=== PATIENT | male | born 1950 | race Caucasian/White ===

== ENCOUNTER 2020-12-08 14:46 | Observation (INO) | payer MEDICARE, OTHER ==
--- NOTE | 2020-12-08 15:03 | ERPHSYRPT ---
- History of Present Illness Time Seen by Provider: 12/08/20 15:03 Source: patient, family Exam Limitations: no limitations Patient Subjective Stated Complaint: Pt states "I was at my Dr. office and he said I needed to come here." "I have been a little short of breath." Triage Nursing Assessment: Pt presented alert and oriented X 3, skin pwd Pt ambulates with a slow shuffling gait, able to speak in clear full sentences pt in no apparent respiratory distress. 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 Yin) for an evaluation. Patient has been becoming more short of breath. With exertion, today, his oxygen saturation on his usual oxygen supplementation was in the 60s percentage. When he is lying flat and still he was 97%. Patient is a [facility] patient but prefers to stay at [facility]. Patient refuses to go to the hospitals in [facility]. Patient has a history of CLL and frequently has abnormally high very high white blood cell counts. Patient denies chest pain. He denies fevers, he denies abdominal pain. He denies nausea vomiting diarrhea. Timing/Duration: today Activities at Onset: activity Severity of Dyspnea-Max: moderate Severity of Dyspnea-Current: moderate Possible Cause: frequent episodes Modifying Factors: Improves With: activity, exertion Associated Symptoms: ankle swelling, No chest pain/discomfort Allergies/Adverse Reactions: No Known Drug Allergies Allergy (Verified 12/08/20 14:55) Home Medications: Albuterol Sulfate [Albuterol Sulfate Hfa] 8.5 gm IH DAILY 12/08/20 [History] Budesonide/Formoterol Fumarate [Symbicort 80-4.5 Mcg Inhaler] 10.2 gm IH DAILY 12/08/20 [History] Furosemide 20 mg [Lasix 20 mg] 20 mg PO DAILY 12/08/20 [History] Prednisone 20 mg [Deltasone 20 mg] 20 mg PO DAILY 12/08/20 [History] lisinopriL [Lisinopril] 5 mg PO DAILY 12/08/20 [History] Hx Tetanus, Diphtheria Vaccination/Date Given: No Hx Influenza Vaccination/Date Given: No Hx Pneumococcal Vaccination/Date Given: No Immunizations Up to Date: Yes Travel Risk - International Travel Have you traveled outside of the country in past 3 weeks: No - Coronavirus Screening Are you exhibiting any of the following symptoms?: No Close contact with a COVID-19 positive Pt in past 14-21 Days: No - Vaccine Status Have you recieved a Covid-19 vaccination: Yes Project Director: Moderna - Vaccination Dates Date of 2cond Vaccination (if applicable): 2020 - Review of Systems Constitutional: No Symptoms Eyes: No Symptoms Ears, Nose, & Throat: No Symptoms Respiratory: Dyspnea on Exertion (ALEGRIA) Cardiac: No Symptoms Abdominal/Gastrointestinal: No Symptoms Genitourinary Symptoms: No Symptoms Musculoskeletal: No Symptoms Skin: No Symptoms Neurological: No Symptoms Psychological: No Symptoms Endocrine: No Symptoms Hematologic/Lymphatic: No Symptoms Immunological/Allergic: No Symptoms All Other Systems: Reviewed and Negative - Past Medical History Pertinent Past Medical History: Yes Neurological History: No Pertinent History ENT History: No Pertinent History Cardiac History: High Cholesterol, Hypertension, Myocardial Infarction ([place]) Respiratory History: Asthma, COPD, Emphysema Endocrine Medical History: Hypoglycemia Musculoskeletal History: No Pertinent History GI Medical History: No Pertinent History History: Renal Disease Psycho-Social History: No Pertinent History Male Reproductive Disorders: No Pertinent History - Past Surgical History Past Surgical History: Yes Other Surgical History: cardiac cath and stent placement. hernia - Social History Smoking Status: Former smoker Exposure to second hand smoke: Yes Drug Use: none Patient Lives Alone: No - Nursing Vital Signs Nursing Vital Signs: Initial Vital Signs Temperature 97.8 F 12/08/20 14:49 Pulse Rate 94 H 12/08/20 14:49 Respiratory Rate 22 12/08/20 14:49 Blood Pressure 143/87 12/08/20 14:49 O2 Sat by Pulse Oximetry 97 12/08/20 14:49 Pain Scale Pain Intensity 0 - Physical Exam General Appearance: mild distress, alert, anxiety Eye Exam: PERRL/EOMI, eyes nml inspection Ears, Nose, Throat Exam: hearing grossly normal, normal ENT inspection, normal pharynx Neck Exam: normal inspection, non-tender, supple, full range of motion Respiratory Exam: normal breath sounds, lungs clear, respiratory distress (Mild), airway intact, No chest tenderness Cardiovascular/Chest Exam: normal heart sounds, regular rate/rhythm, normal peripheral pulses Abdominal/Gastrointestinal Exam: soft, normal bowel sounds, No tenderness Rectal Exam: not done Extremity Exam: non-tender, normal range of motion, normal inspection Neurologic Exam: alert, oriented x 3, cooperative, data warehousing architect II-XII nml as tested, normal mood/affect, nml cerebellar function, nml station & gait, sensation nml Skin Exam: normal color, warm, dry Lymphatic Exam: No adenopathy SpO2 Interpretation: normal SpO2: 97 O2 Delivery: Nasal Cannula - Course Nursing assessment & vital signs reviewed: Yes EKG Interpreted by Me: RATE (90), Sinus Rhythm, NORMAL AXIS, NORMAL INTERVALS, NORMAL QRS, NORMAL ST-T, Other (No acute ischemic changes. There are no comparison EKGs available for comparison.) Ordered Tests: Active Orders 24 hr Category Date Time Status Wood Block Artist STAT Care 12/08/20 15:28 Active EKG-ER Only STAT Care 12/08/20 15:27 Active IV Insertion STAT Care 12/08/20 15:27 Active Pulse Oximetry (ED) STAT Care 12/08/20 15:27 Active CHEST 1 VIEW (PORTABLE) Stat Exams 12/08/20 15:28 Completed CBC W DIFF Stat Lab 12/08/20 17:31 Completed CMP Stat Lab 12/08/20 15:20 Completed Lactic Acid Stat Lab 12/08/20 15:27 Completed Manual Differential NC Stat Lab 12/08/20 17:31 Completed NT PRO BNP Stat Lab 12/08/20 15:20 Completed PROTIME WITH INR Stat Lab 12/08/20 15:50 Completed TROPONIN Q3H Lab 12/08/20 15:20 Completed TROPONIN Q3H Lab 12/08/20 18:24 Received TROPONIN Q3H Lab 12/08/20 21:30 Ordered TROPONIN Q3H Lab 12/09/20 00:30 Ordered TROPONIN Q3H Lab 12/09/20 03:30 Ordered Transfer Order Routine Transfer 12/08/20 Ordered Medication Summary Discontinued Medications Generic Name Dose Route Start Last Admin Trade Name Freq PRN Reason Stop Dose Admin Methylprednisolone Sodium 0 mg 12/08/20 15:27 12/08/20 15:33 Succinate 125 mg/ Sterile IV 12/08/20 15:28 125 mg Water 2 ml STAT ONE Administration Methylprednisolone Sodium Succinate Confirm 12/08/20 15:32 Solu-Medrol Administered 12/08/20 15:33 Dose 125 mg .ROUTE .STK-MED ONE Sterile Water Confirm 12/08/20 15:32 Sterile H2o 10 Ml Administered 12/08/20 15:33 Dose 10 ml IJ .K-MED ONE Lab/Rad Data: Laboratory Result Diagrams 12/08/20 17:31 12/08/20 15:20 Laboratory Results 12/08/20 12/08/20 12/08/20 Range/Units 17:31 16:32 15:50 WBC 26.0 H* (4.0-10.5) K/mm3 RBC 4.46 (4.1-5.6) M/mm3 Hgb 14.6 (12.5-18.0) gm/dl Hct 46.7 (42-50) % MCV 104.7 H (78-100) fl MCH 32.7 H (26-32) pg MCHC 31.3 L (32-36) g/dl RDW 13.3 (11.5-14.0) % Plt Count 188 (150-450) K/mm3 MPV 9.1 (7.5-11.0) fl PT 12.3 (9.4-12.5) SECONDS INR 1.04 (0.8-3.0) Sodium (137-145) mmol/L Potassium (3.5-5.1) mmol/L Chloride (98-107) mmol/L Carbon Dioxide (22-30) mmol/L Anion Gap (5-15) MEQ/L BUN (9-20) mg/dL Creatinine (0.66-1.25) mg/dL Estimated GFR ML/MIN Glucose (74-106) mg/dL Lactic Acid (0.4-2.0) Calcium (8.4-10.2) mg/dL Total Bilirubin (0.2-1.3) mg/dL AST (17-59) U/L ALT (0-50) U/L Alkaline Phosphatase (38-126) U/L Troponin I (0.000-0.034) ng/mL NT-Pro-B Natriuret Pep (0-900) pg/mL Serum Total Protein (6.3-8.2) g/dL Albumin (3.5-5.0) g/dL SARS-CoV-2 (PCR) NEGATIVE (NEGATIVE) 12/08/20 12/08/20 12/08/20 Range/Units 15:27 15:20 15:20 WBC (4.0-10.5) K/mm3 RBC (4.1-5.6) M/mm3 Hgb (12.5-18.0) gm/dl Hct (42-50) % MCV (78-100) fl MCH (26-32) pg MCHC (32-36) g/dl RDW (11.5-14.0) % Plt Count (150-450) K/mm3 MPV (7.5-11.0) fl PT (9.4-12.5) SECONDS INR (0.8-3.0) Sodium 140 (137-145) mmol/L Potassium 3.9 (3.5-5.1) mmol/L Chloride 97 L (98-107) mmol/L Carbon Dioxide 37 H (22-30) mmol/L Anion Gap 9.8 (5-15) MEQ/L BUN 22 H (9-20) mg/dL Creatinine 0.87 (0.66-1.25) mg/dL Estimated GFR > 60.0 ML/MIN Glucose 148 H (74-106) mg/dL Lactic Acid 1.2 (0.4-2.0) Calcium 9.0 (8.4-10.2) mg/dL Total Bilirubin 0.80 (0.2-1.3) mg/dL AST 42 (17-59) U/L ALT 42 (0-50) U/L Alkaline Phosphatase 84 (38-126) U/L Troponin I < 0.012 (0.000-0.034) ng/mL NT-Pro-B Natriuret Pep 245 (0-900) pg/mL Serum Total Protein 6.3 (6.3-8.2) g/dL Albumin 3.7 (3.5-5.0) g/dL SARS-CoV-2 (PCR) (NEGATIVE) - Progress Progress: improved, re-examined Air Movement: good Progress Note: 12/08/20 16:56 Chest x-ray shows COPD changes. There are no acute cardiopulmonary processes present. Blood Culture(s) Obtained: No Antibiotics given: No Discussed with Dr.: Groves Counseled pt/family regarding: lab results, diagnosis, rad results - Departure Departure Disposition: Observation Clinical Impression: COPD with acute exacerbation, Hypoxia Condition: Stable Critical Care Time: Yes Critical Care Time(excluding separately billable procedures): Critical 30-74 mins Referrals: CUAUHTEMOC SANTANA [NON-STAFF PHY W/O PRIVILEGES] - Instructions: Chronic Obstructive Pulmonary Disease
[2020-12-08] MEDS ORDERED: solu-MEDROL 125 MG, Sterile H2O 10 ml 2 ML IV ONE ×2 (15:27)
[2020-12-08] MEDS ORDERED: solu-MEDROL ONE ×2 (15:32→23:16)
[2020-12-08] MEDS ORDERED: Sterile H2O 10 ml IJ ONE ×2 (15:32→23:16)
[2020-12-08 16:09] LABS: INR 1.04 (0.8-3.0); PROTIME 12.3 SECONDS (9.4-12.5)
--- NOTE | 2020-12-08 16:20 | XRAY ---
Exam: AP upright portable chest film from 12/08/2020. Indication: 70-year-old male with shortness of breath, no history of prior surgery. Findings: The transverse heart size is normal. Some atherosclerotic vascular calcification is seen within the aortic arch. The tena and mediastinal structures are remarkable for some mild chronic central bronchial wall thickening, perhaps secondary to COPD. The lungs are hyperinflated. I note significant emphysematous changes throughout the upper two thirds of the right lung field and at the left lung apex. No air space infiltrates, pneumothorax, or pleural effusion is seen. There is mild biapical pleural thickening. Old healed rib fracture deformities are seen posteriorly involving the right fourth and fifth ribs. No acute osseous process is seen. Impression: 1. Hyperinflation of the lung hull and significant centrilobular emphysematous changes in both upper lung hull, right greater than left. Central bronchial wall thickening is probably on the basis of COPD. 2. No air space infiltrates or other acute cardiopulmonary disease is seen.
[2020-12-08 16:23] LABS: ALBUMIN 3.7 g/dL (3.5-5.0); ALKALINE PHOSPHATASE 84 U/L (38-126); ANION GAP 9.8 MEQ/L (5-15); BLOOD UREA NITROGEN 22 mg/dL (9-20); CHLORIDE 97 mmol/L (98-107); Carbon Dioxide 37 mmol/L (22-30); Creatinine 1 0.87 mg/dL (0.66-1.25); EST GLOMERULAR FILTRATION RATE > 60.0 ML/MIN; Glucose 148 mg/dL (74-106); NT PRO BNP 245 pg/mL (0-900); Potassium 3.9 mmol/L (3.5-5.1); SGOT/AST 42 U/L (17-59); SGPT/ALT 42 U/L (0-50); SODIUM 140 mmol/L (137-145); Total Protein 6.3 g/dL (6.3-8.2)
[2020-12-08 17:58] LABS: Hematocrit 46.7 % (42-50); Hemoglobin 14.6 gm/dl (12.5-18.0); Mean Cell Volume 104.7 fl (78-100); Mean Corpuscular Hemoglobin 32.7 pg (26-32); Mean Corpuscular Hgb Concent. 31.3 g/dl (32-36); Mean Platelet Volume 9.1 fl (7.5-11.0); Platelet Count 188 K/mm3 (150-450); Red Blood Count 4.46 M/mm3 (4.1-5.6); Red Cell Distribution Width 13.3 % (11.5-14.0)
[2020-12-08 20:00] LABS: Lymphocytes 59 % (24-44); Monocyte 3 % (0.0-12.0); Neutrophils 38 % (36.-66.); Platelet Estimate NORMAL (NORMAL); Total Cells Counted 100
[2020-12-08] MEDS ORDERED: TYLENOL 325 MG PO PRN (20:11)
[2020-12-08] MEDS: PROVENTIL 2.5 MG/3 ML NEB IH SCH (22:10)
[2020-12-08] MEDS ORDERED: PROVENTIL 2.5 MG/3 ML NEB IH ONE (22:14)
[2020-12-08] MEDS: solu-MEDROL 80 MG, Sterile H2O 10 ml 2 ML IV SCH ×2 (23:45)
[2020-12-08] MEDS: COREG 12.5 MG PO SCH (23:46)
[2020-12-08] MEDS: ZOCOR 20MG PO SCH (23:46)
[2020-12-08] MEDS: Protonix 40MG Tablet PO SCH (23:46)
[2020-12-09] MEDS ORDERED: ZOCOR 20MG PO SCH
[2020-12-09 05:02] LABS: Mean Cell Volume 102.8 fl (78-100); Mean Corpuscular Hemoglobin 32.7 pg (26-32); Mean Corpuscular Hgb Concent. 31.8 g/dl (32-36); Mean Platelet Volume 8.9 fl (7.5-11.0); Platelet Count 179 K/mm3 (150-450); Red Blood Count 4.28 M/mm3 (4.1-5.6); Red Cell Distribution Width 12.9 % (11.5-14.0)
[2020-12-09 05:06] LABS: White Blood Count 26.4 K/mm3 (4.0-10.5)
[2020-12-09 05:25] LABS: ALBUMIN 3.5 g/dL (3.5-5.0); ALKALINE PHOSPHATASE 80 U/L (38-126); ANION GAP 9.2 MEQ/L (5-15); BLOOD UREA NITROGEN 23 mg/dL (9-20); CHLORIDE 97 mmol/L (98-107); Calcium 9.1 mg/dL (8.4-10.2); Carbon Dioxide 36 mmol/L (22-30); Creatinine 1 0.74 mg/dL (0.66-1.25); EST GLOMERULAR FILTRATION RATE > 60.0 ML/MIN; Glucose 148 mg/dL (74-106); NT PRO BNP 343 pg/mL (0-900); Potassium 4.6 mmol/L (3.5-5.1); SGOT/AST 26 U/L (17-59); SGPT/ALT 36 U/L (0-50); SODIUM 137 mmol/L (137-145); Total Protein 5.8 g/dL (6.3-8.2)
[2020-12-09] MEDS: PROVENTIL 2.5 MG/3 ML NEB IH SCH ×3 (06:42→19:55)
[2020-12-09] MEDS: Advair Hfa 115/21 Common canister IH SCH ×2 (06:42→19:55)
--- NOTE | 2020-12-09 09:23 | PCM.HP ---
History of Present Illness - Chief Complaint Chief Complaint: COPD with exacerbation History of Present Illness: is a 70 [facility] old male [facility] patient that [facility] with Dr Yin, he has increasing cough, nonproductive and shortness of breath, oxygen drops with exertion significantly. he has no fever, symptoms are intermittent with severe shortness of breath and hypoxia with exertion. - Review of Systems Respiratory: Cough, Short Of Breath Cardiac: No Chest Pain, No Edema, No Syncope Abdominal/Gastrointestinal: No Abdominal Pain, No Nausea, No Vomiting, No Diarrhea Genitourinary Symptoms: No Dysuria Skin: No Rash All Other Systems: Reviewed and Negative Medications & Allergies Home Medications: Home Medication List Albuterol Sulfate [Albuterol Sulfate Hfa] 8.5 gm IH Q6H 12/08/20 [History Confirmed 12/08/20] Aspirin EC 81 mg [Ecotrin 81 mg] 81 mg PO DAILY 12/08/20 [History Confirmed 12/08/20] Atorvastatin Calcium 80 mg PO HS 12/08/20 [History Confirmed 12/08/20] Budesonide/Formoterol Fumarate [Symbicort 80-4.5 Mcg Inhaler] 10.2 gm IH DAILY 12/08/20 [History Confirmed 12/08/20] Carvedilol 12.5 mg [Coreg 12.5 mg] 12.5 mg PO BID 12/08/20 [History Confirmed 12/08/20] Cholecalciferol (Vitamin D3) [Vitamin D3] 25 mcg PO DAILY 12/08/20 [History Confirmed 12/08/20] Furosemide 20 mg [Lasix 20 mg] 20 mg PO DAILY 12/08/20 [History Confirmed 12/08/20] Magnesium Oxide [Magnesium] 400 mg PO DAILY 12/08/20 [History Confirmed 12/08/20] Omeprazole 20 mg PO BIDWM 12/08/20 [History Confirmed 12/08/20] Prednisone 20 mg [Deltasone 20 mg] 20 mg PO DAILY 12/08/20 [History Confirmed 12/08/20] Promethazine HCl 25 mg [Phenergan 25 mg] 12.5 mg PO Q6H PRN 12/08/20 [History Confirmed 12/08/20] lisinopriL [Lisinopril] 5 mg PO DAILY 12/08/20 [History Confirmed 12/08/20] Allergies/Adverse Reactions: Allergies Allergy/AdvReac Type Severity Reaction Status Date / Time No Known Drug Allergies Allergy Verified 12/08/20 14:55 - Past Medical History Past Medical History: Yes Neurological History: No Pertinent History ENT History: No Pertinent History Cardiac History: High Cholesterol, Hypertension, Myocardial Infarction ([place]) Respiratory History: COPD, Emphysema Endocrine Medical History: Hypoglycemia Musculoskelatal History: No Pertinent History GI Medical History: No Pertinent History History: No Pertinent History Pyscho-Social History: No Pertinent History Male Reproductive Disorders: No Pertinent History - Past Surgical History Past Surgical History: Yes Neuro Surgical History: No Pertinent History Cardiac History: Cardiac Stent Respiratory Surgery: No Pertinent History GI Surgical History: Hernia Repair Genitourinary Surgical Hx: No Pertinent History Musculskeletal Surgical Hx: No Pertinent History Male Surgical History: No Pertinent History Other Surgical History: cardiac cath and stent placement. hernia - Social History Smoking Status: Former smoker Exposure to second hand smoke: Yes Alcohol: None Drug Use: none - Physical Exam Vital Signs: Vital Signs - 24 hr Temp Pulse Resp BP Pulse Ox 12/09/20 07:03 98.2 F 88 22 111/56 97 12/09/20 06:45 88 20 95 12/09/20 04:15 98.1 F 76 18 121/67 99 12/08/20 23:34 97.5 F 102 H 19 139/88 95 12/08/20 22:10 105 H 20 95 12/08/20 20:25 97.4 F 101 H 26 H 138/76 96 12/08/20 18:47 97 12/08/20 18:12 79 18 117/78 98 12/08/20 17:06 79 15 114/70 98 12/08/20 16:02 80 12/08/20 15:55 97.8 F 87 20 126/88 98 12/08/20 15:30 95 12/08/20 14:49 97.8 F 94 H 22 143/87 97 General Appearance: no apparent distress Neurologic Exam: alert, oriented x 3 Respiratory Exam: prolonged expirations, rhonchi, wheezing Cardiovascular Exam: regular rate/rhythm, normal heart sounds, normal peripheral pulses Gastrointestinal/Abdomen Exam: soft, normal bowel sounds, No tenderness, No mass Extremity Exam: normal inspection, normal range of motion, pelvis stable Results - Labs Lab/Micro Results: Lab Results-Last 24 Hours 12/08/20 12/08/20 12/08/20 Range/Units 15:20 15:20 15:27 WBC (4.0-10.5) K/mm3 RBC (4.1-5.6) M/mm3 Hgb (12.5-18.0) gm/dl Hct (42-50) % MCV (78-100) fl MCH (26-32) pg MCHC (32-36) g/dl RDW (11.5-14.0) % Plt Count (150-450) K/mm3 MPV (7.5-11.0) fl Segmented Neutrophils (36.-66.) % Lymphocytes (Manual) (24-44) % Monocytes (Manual) (0.0-12.0) % Platelet Estimate (NORMAL) RBC Morphology Smear Path Review PT (9.4-12.5) SECONDS INR (0.8-3.0) Sodium 140 (137-145) mmol/L Potassium 3.9 (3.5-5.1) mmol/L Chloride 97 L (98-107) mmol/L Carbon Dioxide 37 H (22-30) mmol/L Anion Gap 9.8 (5-15) MEQ/L BUN 22 H (9-20) mg/dL Creatinine 0.87 (0.66-1.25) mg/dL Estimated GFR > 60.0 ML/MIN Glucose 148 H (74-106) mg/dL Lactic Acid 1.2 (0.4-2.0) Calcium 9.0 (8.4-10.2) mg/dL Total Bilirubin 0.80 (0.2-1.3) mg/dL AST 42 (17-59) U/L ALT 42 (0-50) U/L Alkaline Phosphatase 84 (38-126) U/L Troponin I < 0.012 (0.000-0.034) ng/mL NT-Pro-B Natriuret Pep 245 (0-900) pg/mL Serum Total Protein 6.3 (6.3-8.2) g/dL Albumin 3.7 (3.5-5.0) g/dL SARS-CoV-2 (PCR) (NEGATIVE) 12/08/20 12/08/20 12/08/20 Range/Units 15:50 16:32 17:31 WBC 26.0 H* (4.0-10.5) K/mm3 RBC 4.46 (4.1-5.6) M/mm3 Hgb 14.6 (12.5-18.0) gm/dl Hct 46.7 (42-50) % MCV 104.7 H (78-100) fl MCH 32.7 H (26-32) pg MCHC 31.3 L (32-36) g/dl RDW 13.3 (11.5-14.0) % Plt Count 188 (150-450) K/mm3 MPV 9.1 (7.5-11.0) fl Segmented Neutrophils 38 (36.-66.) % Lymphocytes (Manual) 59 H (24-44) % Monocytes (Manual) 3 (0.0-12.0) % Platelet Estimate NORMAL (NORMAL) RBC Morphology NORMAL Smear Path Review Pending PT 12.3 (9.4-12.5) SECONDS INR 1.04 (0.8-3.0) Sodium (137-145) mmol/L Potassium (3.5-5.1) mmol/L Chloride (98-107) mmol/L Carbon Dioxide (22-30) mmol/L Anion Gap (5-15) MEQ/L BUN (9-20) mg/dL Creatinine (0.66-1.25) mg/dL Estimated GFR ML/MIN Glucose (74-106) mg/dL Lactic Acid (0.4-2.0) Calcium (8.4-10.2) mg/dL Total Bilirubin (0.2-1.3) mg/dL AST (17-59) U/L ALT (0-50) U/L Alkaline Phosphatase (38-126) U/L Troponin I (0.000-0.034) ng/mL NT-Pro-B Natriuret Pep (0-900) pg/mL Serum Total Protein (6.3-8.2) g/dL Albumin (3.5-5.0) g/dL SARS-CoV-2 (PCR) NEGATIVE (NEGATIVE) 12/08/20 12/08/20 12/09/20 Range/Units 18:24 21:57 00:20 WBC (4.0-10.5) K/mm3 RBC (4.1-5.6) M/mm3 Hgb (12.5-18.0) gm/dl Hct (42-50) % MCV (78-100) fl MCH (26-32) pg MCHC (32-36) g/dl RDW (11.5-14.0) % Plt Count (150-450) K/mm3 MPV (7.5-11.0) fl Segmented Neutrophils (36.-66.) % Lymphocytes (Manual) (24-44) % Monocytes (Manual) (0.0-12.0) % Platelet Estimate (NORMAL) RBC Morphology Smear Path Review PT (9.4-12.5) SECONDS INR (0.8-3.0) Sodium (137-145) mmol/L Potassium (3.5-5.1) mmol/L Chloride (98-107) mmol/L Carbon Dioxide (22-30) mmol/L Anion Gap (5-15) MEQ/L BUN (9-20) mg/dL Creatinine (0.66-1.25) mg/dL Estimated GFR ML/MIN Glucose (74-106) mg/dL Lactic Acid (0.4-2.0) Calcium (8.4-10.2) mg/dL Total Bilirubin (0.2-1.3) mg/dL AST (17-59) U/L ALT (0-50) U/L Alkaline Phosphatase (38-126) U/L Troponin I < 0.012 < 0.012 < 0.012 (0.000-0.034) ng/mL NT-Pro-B Natriuret Pep (0-900) pg/mL Serum Total Protein (6.3-8.2) g/dL Albumin (3.5-5.0) g/dL SARS-CoV-2 (PCR) (NEGATIVE) 12/09/20 12/09/20 12/09/20 Range/Units 04:28 04:28 04:28 WBC 26.4 H* (4.0-10.5) K/mm3 RBC 4.28 (4.1-5.6) M/mm3 Hgb 14.0 (12.5-18.0) gm/dl Hct 44.0 (42-50) % MCV 102.8 H (78-100) fl MCH 32.7 H (26-32) pg MCHC 31.8 L (32-36) g/dl RDW 12.9 (11.5-14.0) % Plt Count 179 (150-450) K/mm3 MPV 8.9 (7.5-11.0) fl Segmented Neutrophils (36.-66.) % Lymphocytes (Manual) (24-44) % Monocytes (Manual) (0.0-12.0) % Platelet Estimate (NORMAL) RBC Morphology Smear Path Review PT (9.4-12.5) SECONDS INR (0.8-3.0) Sodium 137 (137-145) mmol/L Potassium 4.6 (3.5-5.1) mmol/L Chloride 97 L (98-107) mmol/L Carbon Dioxide 36 H (22-30) mmol/L Anion Gap 9.2 (5-15) MEQ/L BUN 23 H (9-20) mg/dL Creatinine 0.74 (0.66-1.25) mg/dL Estimated GFR > 60.0 ML/MIN Glucose 148 H (74-106) mg/dL Lactic Acid (0.4-2.0) Calcium 9.1 (8.4-10.2) mg/dL Total Bilirubin 0.50 (0.2-1.3) mg/dL AST 26 (17-59) U/L ALT 36 (0-50) U/L Alkaline Phosphatase 80 (38-126) U/L Troponin I < 0.012 (0.000-0.034) ng/mL NT-Pro-B Natriuret Pep 343 (0-900) pg/mL Serum Total Protein 5.8 L (6.3-8.2) g/dL Albumin 3.5 (3.5-5.0) g/dL SARS-CoV-2 (PCR) (NEGATIVE) - Radiology Impressions Radiology Exams & Impressions: Radiology Procedures Category Date Time Status CHEST 1 VIEW (PORTABLE) Stat Exams 12/08/20 15:28 Completed - Other Procedures and Tests Respiratory Therapy 12/08/20 20:11 Oxygen Nasal Cannula 3 lpm 12/08/20 22:45 Respiratory Therapy Assessment DAILY Assessment/Plan (1) COPD with acute exacerbation Current Visit: Yes Status: Acute Assessment & Plan: IV solu medrol, nebs and rocephin/zithromax ordered Code(s): J44.1 - CHRONIC OBSTRUCTIVE PULMONARY DISEASE W (ACUTE) EXACERBATION (2) Hypoxia Current Visit: Yes Status: Acute Code(s): R09.02 - HYPOXEMIA (3) CLL (chronic lymphocytic leukemia) Current Visit: Yes Status: Acute Assessment & Plan: chronic elevation of WBC Code(s): C91.10 - CHRONIC LYMPHOCYTIC LEUK OF B-CELL TYPE NOT ACHIEVE REMIS
[2020-12-09] MEDS: solu-MEDROL 80 MG, Sterile H2O 10 ml 2 ML IV SCH ×6 (09:38→17:42)
[2020-12-09] MEDS: COREG 12.5 MG PO SCH ×2 (09:38→21:13)
[2020-12-09] MEDS: Protonix 40MG Tablet PO SCH ×2 (09:38→21:13)
[2020-12-09] MEDS: ROCEPHIN 1 Gm-D5w 50 ml Bag** 1 G/50 ML IVPB IV SCH (09:41)
[2020-12-09] MEDS ORDERED: Spiriva 18 Mcg/Cap Inhaler IH SCH (10:00)
[2020-12-09] MEDS: Zithromax 500 MG/ 250 ML NaCl Premix 500 MG/250 ML IVPB IV SCH (10:31)
[2020-12-09] MEDS: ECOTRIN 81 MG PO SCH (11:27)
[2020-12-09] MEDS: LASIX 20 MG PO SCH (11:27)
[2020-12-09] MEDS: Zestril 5 MG PO SCH (11:27)
[2020-12-09] MEDS: MAG-OX 400 PO SCH (11:27)
[2020-12-09 14:54] LABS: BAND 1 % (0.0-2.0); Lymphocytes 70 % (24-44); Neutrophils 29 % (36.-66.); Total Cells Counted 100
[2020-12-09 14:55] LABS: Toxic Granulation 1+
[2020-12-09 14:56] LABS: Platelet Estimate NORMAL (NORMAL)
[2020-12-09] MEDS: ZOCOR 20MG PO SCH (21:14)
[2020-12-10] MEDS: solu-MEDROL 80 MG, Sterile H2O 10 ml 2 ML IV SCH ×6 (01:13→17:49)
[2020-12-10 05:02] LABS: Absolute Neutrophil Ct (ANC) 12.74 (1.4-6.9); BASOPHIL % 0.1 % (0.0-0.4); Basophil (Absolute #) 0.02 (0-0.4); Eosinophil (Absolute #) 0 (0-0.5); Hematocrit 42.3 % (42-50); Hemoglobin 13.6 gm/dl (12.5-18.0); Lymphocytes % 63.3 % (24.0-44.0); Mean Cell Volume 103.4 fl (78-100); Mean Corpuscular Hemoglobin 33.3 pg (26-32); Mean Corpuscular Hgb Concent. 32.2 g/dl (32-36); Monocyte (Absolute #) 0.39 (0.0-1.3); Monocytes % 1.1 % (0.0-12.0); Neutrophil % 35.5 % (36.0-66.0); Platelet Count 183 K/mm3 (150-450); Red Blood Count 4.09 M/mm3 (4.1-5.6); Red Cell Distribution Width 12.8 % (11.5-14.0)
[2020-12-10 05:06] LABS: White Blood Count 35.9 K/mm3 (4.0-10.5)
[2020-12-10 05:15] LABS: ANION GAP 10.8 MEQ/L (5-15); BLOOD UREA NITROGEN 25 mg/dL (9-20); CHLORIDE 98 mmol/L (98-107); Calcium 8.8 mg/dL (8.4-10.2); Carbon Dioxide 30 mmol/L (22-30); Creatinine 1 0.61 mg/dL (0.66-1.25); EST GLOMERULAR FILTRATION RATE > 60.0 ML/MIN; Glucose 228 mg/dL (74-106); Potassium 4.1 mmol/L (3.5-5.1); SODIUM 134 mmol/L (137-145)
[2020-12-10 05:42] LABS: Slide Review 1 YES
[2020-12-10] MEDS: Spiriva 18 Mcg/Cap Inhaler IH SCH (06:47)
[2020-12-10] MEDS: PROVENTIL 2.5 MG/3 ML NEB IH SCH ×4 (06:47→20:00)
[2020-12-10] MEDS: Advair Hfa 115/21 Common canister IH SCH ×2 (06:47→20:00)
--- NOTE | 2020-12-10 08:42 | PCM.NOTE ---
Date and Time: 12/10/20 0841 Subjective Assessment: patient is doing well today, he is comfortable with his breathing, only has trouble with exertion. Objective Exam General Appearance: no apparent distress, alert Skin Exam: normal color, warm, dry Respiratory Exam: diminished breath sounds, prolonged expirations, rhonchi Cardiovascular Exam: regular rate/rhythm, normal heart sounds Gastrointestinal/Abdomen Exam: soft, No tenderness, No mass Extremity Exam: normal inspection, normal range of motion OBJECTIVE DATA Vital Signs: Vital Signs - 24 hr Temp Pulse Resp BP Pulse Ox 12/10/20 06:50 76 20 96 12/10/20 04:00 98.2 F 98 H 19 123/86 98 12/09/20 23:42 98.2 F 86 22 113/66 94 L 12/09/20 19:55 86 16 96 12/09/20 19:35 98.4 F 101 H 18 136/79 93 L 12/09/20 15:53 98.2 F 100 H 22 105/57 95 12/09/20 13:12 83 22 98 12/09/20 12:00 98.1 F 101 H 21 142/85 96 Pain Assessment - Last Documented Pain Intensity 0 Intake and Output: Intake & Output 12/07/20 12/08/20 12/09/20 12/10/20 11:59 11:59 11:59 11:59 Intake Total 1260 1860 Output Total 700 2400 Balance 560 -540 Weight 86.5 kg Lab Results: Lab Results-Last 24 Hours 12/09/20 12/10/20 12/10/20 Range/Units 04:28 04:27 04:27 WBC 35.9 H* (4.0-10.5) K/mm3 RBC 4.09 L (4.1-5.6) M/mm3 Hgb 13.6 (12.5-18.0) gm/dl Hct 42.3 (42-50) % MCV 103.4 H (78-100) fl MCH 33.3 H (26-32) pg MCHC 32.2 (32-36) g/dl RDW 12.8 (11.5-14.0) % Plt Count 183 (150-450) K/mm3 MPV 9.0 (7.5-11.0) fl Gran % 35.5 L (36.0-66.0) % Eos # (Auto) 0 (0-0.5) Absolute Lymphs (auto) 22.70 H (1.0-4.6) Absolute Monos (auto) 0.39 (0.0-1.3) Lymphocytes % 63.3 H (24.0-44.0) % Monocytes % 1.1 (0.0-12.0) % Eosinophils % 0.0 (0.00-5.0) % Basophils % 0.1 (0.0-0.4) % Absolute Granulocytes 12.74 H (1.4-6.9) Segmented Neutrophils 29 L (36.-66.) % Band Neutrophils 1 (0.0-2.0) % Lymphocytes (Manual) 70 H (24-44) % Basophils # 0.02 (0-0.4) Toxic Granulation 1+ Platelet Estimate NORMAL (NORMAL) RBC Morphology NORMAL Sodium 134 L (137-145) mmol/L Potassium 4.1 (3.5-5.1) mmol/L Chloride 98 (98-107) mmol/L Carbon Dioxide 30 (22-30) mmol/L Anion Gap 10.8 (5-15) MEQ/L BUN 25 H (9-20) mg/dL Creatinine 0.61 L (0.66-1.25) mg/dL Estimated GFR > 60.0 ML/MIN Glucose 228 H (74-106) mg/dL Calcium 8.8 (8.4-10.2) mg/dL Slides for Path Review YES Radiology Exams: Radiology Procedures Category Date Time Status CHEST 1 VIEW (PORTABLE) Stat Exams 12/08/20 15:28 Completed Assessment/Plan (1) COPD with acute exacerbation Current Visit: Yes Status: Acute Assessment & Plan: continue rocephin/zithromax, solu medrol and nebulizer therapy. Code(s): J44.1 - CHRONIC OBSTRUCTIVE PULMONARY DISEASE W (ACUTE) EXACERBATION (2) Hypoxia Current Visit: Yes Status: Acute Code(s): R09.02 - HYPOXEMIA (3) CLL (chronic lymphocytic leukemia) Current Visit: Yes Status: Acute Code(s): C91.10 - CHRONIC LYMPHOCYTIC LEUK OF B-CELL TYPE NOT ACHIEVE REMIS
[2020-12-10] MEDS: ROCEPHIN 1 Gm-D5w 50 ml Bag** 1 G/50 ML IVPB IV SCH (09:06)
[2020-12-10] MEDS: Zithromax 500 MG/ 250 ML NaCl Premix 500 MG/250 ML IVPB IV SCH (09:06)
[2020-12-10] MEDS: Protonix 40MG Tablet PO SCH ×2 (09:07→20:59)
[2020-12-10] MEDS: Zestril 5 MG PO SCH (09:07)
[2020-12-10] MEDS: ENOXAPARIN SODIUM SQ SCH (09:07)
[2020-12-10] MEDS: ECOTRIN 81 MG PO SCH (09:07)
[2020-12-10] MEDS: LASIX 20 MG PO SCH (09:07)
[2020-12-10] MEDS: MAG-OX 400 PO SCH (09:07)
[2020-12-10] MEDS: COREG 12.5 MG PO SCH ×2 (09:07→20:58)
[2020-12-10] MEDS ORDERED: NON-FORMULARY ITEM (Magnesium Oxide [Magnesium] 400 MG) PO SCH (10:00)
[2020-12-10] MEDS: ZOCOR 20MG PO SCH (20:58)
[2020-12-11] MEDS: solu-MEDROL 80 MG, Sterile H2O 10 ml 2 ML IV SCH ×4 (01:21→10:21)
[2020-12-11] MEDS: Advair Hfa 115/21 Common canister IH SCH (08:13)
[2020-12-11] MEDS: PROVENTIL 2.5 MG/3 ML NEB IH SCH (08:14)
[2020-12-11] MEDS: Spiriva 18 Mcg/Cap Inhaler IH SCH (08:15)
[2020-12-11 08:19] VITALS: PULSE 56; O2SAT 92
[2020-12-11 08:27] VITALS: BP 118/70
[2020-12-11] MEDS: COREG 12.5 MG PO SCH (10:16)
[2020-12-11] MEDS: LASIX 20 MG PO SCH (10:16)
[2020-12-11] MEDS: Protonix 40MG Tablet PO SCH (10:16)
[2020-12-11] MEDS: Zestril 5 MG PO SCH (10:16)
[2020-12-11] MEDS: MAG-OX 400 PO SCH (10:16)
[2020-12-11] MEDS: ECOTRIN 81 MG PO SCH (10:16)
[2020-12-11] MEDS: ENOXAPARIN SODIUM SQ SCH (10:21)
[2020-12-11] MEDS: Zithromax 500 MG/ 250 ML NaCl Premix 500 MG/250 ML IVPB IV SCH (10:21)
[2020-12-11] MEDS: ROCEPHIN 1 Gm-D5w 50 ml Bag** 1 G/50 ML IVPB IV SCH (10:21)
--- NOTE | 2020-12-11 12:25 | PCM.DS ---
Discharge Summary Date of Admission: 12/08/20 20:02 Admitting Physician: MELECIO BULLARD Primary Care Provider: MELECIO BULLARD Allergies Allergies No Known Drug Allergies Allergy (Verified 12/08/20 14:55) Hospital Summary - Hospital Course Hospital Course: Chief Complaint Diagnosis COPD with exacerbation Allergies Allergy/AdvReac Type Severity Reaction Status Date / Time No Known Drug Allergies Allergy Verified 12/08/20 14:55 Vital Signs (Last 24 hours) Temp Pulse Resp BP Pulse Ox 12/11/20 08:15 56 L 18 92 L 12/11/20 08:00 98.3 F 80 19 118/70 92 L 12/11/20 04:00 97.4 F 80 16 136/79 93 L 12/11/20 00:00 97.6 F 84 19 108/62 96 12/10/20 20:00 70 20 96 12/10/20 19:46 98.1 F 67 18 147/65 98 12/10/20 16:00 97.2 F 103 H 18 133/83 95 12/10/20 13:14 93 H 20 94 L Home Medications Medication Instructions Recorded Confirmed Last Taken Type Albuterol Sulfate [Albuterol 8.5 gm IH Q6H 12/08/20 12/08/20 Unknown History Sulfate Hfa] Aspirin EC 81 mg [Ecotrin 81 81 mg PO DAILY 12/08/20 12/08/20 12/08/20 History mg] Atorvastatin Calcium 80 mg PO HS 12/08/20 12/08/20 12/07/20 History Budesonide/Formoterol Fumarate 10.2 gm IH DAILY 12/08/20 12/08/20 Unknown History [Symbicort 80-4.5 Mcg Inhaler] Carvedilol 12.5 mg [Coreg 12.5 12.5 mg PO BID 12/08/20 12/08/20 12/08/20 History mg] Cholecalciferol (Vitamin D3) 25 mcg PO DAILY 12/08/20 12/08/20 12/08/20 History [Vitamin D3] Magnesium Oxide [Magnesium] 400 mg PO DAILY 12/08/20 12/08/20 12/08/20 History Omeprazole 20 mg PO BIDWM 12/08/20 12/08/20 12/08/20 History Prednisone 20 mg [Deltasone 20 20 mg PO DAILY 12/08/20 12/08/20 Unknown History mg] Promethazine HCl 25 mg 12.5 mg PO Q6H PRN 12/08/20 12/08/20 12/08/20 History [Phenergan 25 mg] lisinopriL [Lisinopril] 5 mg PO DAILY 12/08/20 12/08/20 Unknown History Furosemide 40 mg [Lasix 40 40 mg PO DAILY #30 tablet 12/11/20 Unknown Rx MG] Levofloxacin [Levaquin] 500 mg PO DAILY #5 tablet 12/11/20 Unknown Rx Potassium Chloride 10 Meq Tab* 0 meq PO DAILY #30 tab 12/11/20 Unknown Rx [Klor Con 10 MEQ] Current Medications Discontinued Medications Generic Name Dose Route Start Last Admin Trade Name Freq PRN Reason Stop Dose Admin Acetaminophen 650 mg 12/08/20 20:11 Tylenol 325 Mg PO 01/07/21 20:10 Q4H PRN PRN PAIN, FEVER, HEADACHE Albuterol Sulfate Confirm 12/08/20 22:14 Proventil 2.5 Mg/3 Ml Neb Administered 12/08/20 22:15 Dose 2.5 mg IH .STK-MED [facility] Albuterol Sulfate 2.5 mg 12/08/20 19:00 12/10/20 07:24 Proventil 2.5 Mg/3 Ml Neb IH 01/07/21 18:59 Not Given TID JOSE Albuterol Sulfate 2.5 mg 12/09/20 13:00 12/11/20 08:14 Proventil 2.5 Mg/3 Ml Neb IH 01/07/21 18:59 2.5 mg TIDRT JOSE Administration Aspirin 81 mg 12/09/20 11:00 12/11/20 10:16 Ecotrin 81 Mg PO 01/08/21 10:59 81 mg DAILY JOSE Administration Carvedilol 12.5 mg 12/09/20 00:00 12/11/20 10:16 Coreg 12.5 Mg PO 01/08/21 00:00 12.5 mg BID JOSE Administration Methylprednisolone Sodium 0 mg 12/08/20 15:27 12/08/20 15:33 Succinate 125 mg/ Sterile IV 12/08/20 15:28 125 mg Water 2 ml STAT ONE Administration Methylprednisolone Sodium 0 mg 12/08/20 22:00 12/09/20 10:45 Succinate 80 mg/ Sterile Water IV 01/07/21 21:59 Not Given 2 ml Q8HT JOSE Methylprednisolone Sodium 0 mg 12/09/20 10:00 12/11/20 10:21 Succinate 80 mg/ Sterile Water IV 01/08/21 09:59 Not Given 2 ml Q8H JOSE Enoxaparin Sodium 40 mg 12/10/20 10:00 12/11/20 10:21 Enoxaparin Sodium SQ 01/09/21 09:59 Not Given DAILY [facility] Furosemide 20 mg 12/09/20 11:00 12/11/20 10:16 Lasix 20 Mg PO 01/08/21 10:59 20 mg DAILY JOSE Administration Ceftriaxone Sodium/Dextrose 1 g in 50 mls @ 100 mls/hr 12/09/20 10:00 12/11/20 10:21 Rocephin 1 Gm-D5w 50 Ml Bag IV 12/12/20 09:59 Not Given Q24H10 JOSE Azithromycin 500 mg in 250 mls @ 250 mls/hr 12/09/20 10:00 12/11/20 10:21 Zithromax 500 Mg/ 250 Ml Nacl Premix IV 01/08/21 09:59 Not Given Q24H10 [facility] Lisinopril 5 mg 12/09/20 11:00 12/11/20 10:16 Zestril 5 Mg PO 01/08/21 10:59 5 mg DAILY JOSE Administration Magnesium Oxide 400 mg 12/09/20 11:00 12/11/20 10:16 Mag-Ox 400 PO 01/08/21 10:59 400 mg DAILY JOSE Administration Methylprednisolone Sodium Succinate Confirm 12/08/20 15:32 Solu-Medrol Administered 12/08/20 15:33 Dose 125 mg .ROUTE .STK-MED ONE Methylprednisolone Sodium Succinate Confirm 12/08/20 23:16 Solu-Medrol Administered 12/08/20 23:17 Dose 125 mg .ROUTE .STK-MED ONE Pantoprazole Sodium 40 mg 12/09/20 00:00 12/11/20 10:16 Protonix 40mg Tablet PO 01/08/21 00:00 40 mg BID JOSE Administration Fluticasone/Salmeterol 2 puff 12/09/20 07:00 12/11/20 08:13 Advair Hfa 115/ Common Canister* IH 01/08/21 06:59 2 puff BIDRT JSOE Administration Simvastatin 80 mg 12/09/20 00:00 Zocor 20mg PO 01/08/21 00:00 HS JOSE Simvastatin 40 mg 12/09/20 00:00 12/10/20 20:58 Zocor 20mg PO 01/08/21 00:00 40 mg HS JOSE Administration Sterile Water Confirm 12/08/20 15:32 Sterile H2o 10 Ml Administered 12/08/20 15:33 Dose 10 ml IJ .STK-MED ONE Sterile Water Confirm 12/08/20 23:16 Sterile H2o 10 Ml Administered 12/08/20 23:17 Dose 10 ml IJ .STK-MED ONE Tiotropium Elton 1 ea 12/09/20 10:00 12/09/20 06:42 Spiriva 18 Mcg/Cap Inhaler 01/08/21 09:59 1 ea DAILY JOSE Administration Tiotropium Elton 1 ea 12/10/20 07:00 12/11/20 08:15 Spiriva 18 Mcg/Cap Inhaler 01/08/21 09:59 1 ea 0700 JOSE Administration Intake & Output (Last 24 hours) 12/09/20 12/10/20 12/11/20 12/12/20 11:59 11:59 11:59 11:59 Intake Total 1260 2340 1540 Output Total 700 2400 250 Balance 560 -60 1290 Weight 86.5 kg 95.2 kg 89.5 kg Orders (Last 24 hours) Category Date Time Status Discharge Routine Discharge 12/11/20 Ordered - Vitals & Intake/Output Vital Signs: Vital Signs Temperature 98.3 F 12/11/20 08:00 Pulse Rate 56 L 12/11/20 08:15 Respiratory Rate 18 12/11/20 08:15 Blood Pressure 118/70 12/11/20 08:00 O2 Sat by Pulse Oximetry 92 L 12/11/20 08:15 Intake & Output: Intake & Output 12/09/20 12/10/20 12/11/20 12/12/20 11:59 11:59 11:59 11:59 Intake Total 1260 2340 1540 Output Total 700 2400 250 Balance 560 -60 1290 Weight 86.5 kg 95.2 kg 89.5 kg - Lab Result Diagrams: 12/10/20 04:27 12/10/20 04:27 - Procedures and Test Procedures and Tests throughout Hospitalization: Therapy Orders & Screens 12/08/20 20:11 Oxygen Nasal Cannula 3 lpm Comment: Respiratory Therapy Consult ROUTINE Comment: Reason For Exam: 12/08/20 22:41 Respiratory MDI BID Comment: Diagnosis: COPD with exacerbation 12/08/20 22:45 Respiratory Therapy Assessment DAILY Comment: Diagnosis: COPD with exacerbation Discharge Exam General Appearance: no apparent distress, alert Neurologic Exam: alert, oriented x 3, cooperative, normal mood/affect, nml cerebellar function, sensation nml, No motor deficits Eye Exam: PERRL, EOMI, eyes nml inspection Ears, Nose, Throat Exam: normal ENT inspection, pharynx normal, moist mucous membranes Neck Exam: normal inspection, non-tender, supple, full range of motion Respiratory Exam: normal breath sounds, lungs clear, No respiratory distress Cardiovascular Exam: regular rate/rhythm, normal heart sounds Gastrointestinal/Abdomen Exam: soft, No tenderness, No mass Male Genitalia Exam: deferred Rectal Exam: deferred Back Exam: normal inspection, normal range of motion, No CVA tenderness, No vertebral tenderness Extremity Exam: normal inspection, normal range of motion Skin Exam: normal color, warm, dry Final Diagnosis/Problem List - Final Discharge Diagnosis/Problem (1) COPD with acute exacerbation Status: Acute Code(s): J44.1 - CHRONIC OBSTRUCTIVE PULMONARY DISEASE W (ACUTE) EXACERBATION (2) CLL (chronic lymphocytic leukemia) Status: Acute Priority: High Assessment & Plan: Medication Report Discontinued Medications Albuterol Sulfate (Proventil 2.5 Mg/3 Ml Neb) 2.5 mg IH TID JOSE Stop: 01/07/21 18:59 Last Admin: 12/09/20 06:42 Dose: 2.5 mg Documented by: RAFFY Nebulizer Treatment Document 12/09/20 06:42 RAFFY (Rec: 12/09/20 06:43 RAFFY [id number]) Therapy Aerosol Therapy Initial Aerosol Therapy Treatment Method Nebulizer,Mask Treatment Tolerance Good Albuterol Sulfate (Proventil 2.5 Mg/3 Ml Neb) 2.5 mg IH TIDRT JOSE Stop: 01/07/21 18:59 Last Admin: 12/11/20 08:14 Dose: 2.5 mg Documented by: BRITTONFE Nebulizer Treatment Document 12/11/20 08:14 TW (Rec: 12/11/20 08:14 TW [id number]) Therapy Aerosol Therapy Initial Aerosol Therapy Treatment Method Nebulizer,Mask Treatment Tolerance Good Aspirin (Ecotrin 81 Mg) 81 mg PO DAILY JOSE Stop: 01/08/21 10:59 Last Admin: 12/11/20 10:16 Dose: 81 mg Documented by: JAZMINE Carvedilol (Coreg 12.5 Mg) 12.5 mg PO BID [facility] Stop: 01/08/21 00:00 Last Admin: 12/11/20 10:16 Dose: 12.5 mg Documented by: JAZMINE Methylprednisolone Sodium Succinate 125 mg/ Sterile Water 2 ml 0 mg IV STAT ONE Stop: 12/08/20 15:28 Last Admin: 12/08/20 15:33 Dose: 125 mg Documented by: MICHAELORGAN Med Admininistration (IV,IVP) Document 12/08/20 15:33 KM (Rec: 12/08/20 15:33 KM [id number]) Type of Administration Initial IV Push Yes Methylprednisolone Sodium Succinate 80 mg/ Sterile Water 2 ml 0 mg IV Q8HT [facility] Stop: 01/07/21 21:59 Last Admin: 12/09/20 10:45 Dose: Not Given Documented by: BAILEY Non-Admin Reason: changed Methylprednisolone Sodium Succinate 80 mg/ Sterile Water 2 ml 0 mg IV Q8H JOSE Stop: 01/08/21 09:59 Last Admin: 12/11/20 10:21 Dose: Not Given Documented by: JAZMINE Non-Admin Reason: No IV Access Enoxaparin Sodium (Enoxaparin Sodium) 40 mg SQ DAILY [facility] Stop: 01/09/21 09:59 Last Admin: 12/11/20 10:21 Dose: Not Given Documented by: JAZMINE Non-Admin Reason: Patient Refused Furosemide (Lasix 20 Mg) 20 mg PO DAILY JOSE Stop: 01/08/21 10:59 Last Admin: 12/11/20 10:16 Dose: 20 mg Documented by: JAZMINE Ceftriaxone Sodium/Dextrose (Rocephin 1 Gm-D5w 50 Ml Bag) 1 g in 50 mls @ 100 mls/hr IV Q24H10 JOSE Stop: 12/12/20 09:59 Last Admin: 12/11/20 10:21 Dose: Not Given Documented by: JAZMINE Non-Admin Reason: No IV Access Azithromycin (Zithromax 500 Mg/ 250 Ml Nacl Premix) 500 mg in 250 mls @ 250 mls/hr IV Q24H10 JOSE Stop: 01/08/21 09:59 Last Admin: 12/11/20 10:21 Dose: Not Given Documented by: JAZMINE Non-Admin Reason: No IV Access Lisinopril (Zestril 5 Mg) 5 mg PO DAILY JOSE Stop: 01/08/21 10:59 Last Admin: 12/11/20 10:16 Dose: 5 mg Documented by: JAZMINE Magnesium Oxide (Mag-Ox 400) 400 mg PO DAILY JOSE Stop: 01/08/21 10:59 Last Admin: 12/11/20 10:16 Dose: 400 mg Documented by: JAZMINE Pantoprazole Sodium (Protonix 40mg Tablet) 40 mg PO BID JOSE Stop: 01/08/21 00:00 Last Admin: 12/11/20 10:16 Dose: 40 mg Documented by: JAZMINE Fluticasone/Salmeterol (Advair Hfa 115 Common Canister*) 2 puff IH BIDRT JOSE Stop: 01/08/21 06:59 Last Admin: 12/11/20 08:13 Dose: 2 puff Documented by: EDWIGE Menezesair MDI Document 12/11/20 08:13 TW (Rec: 12/11/20 08:13 TW [id number]) MDI MDI Initial MDI Advair 115 2 Puffs Spacer Used Yes Rinsed Mouth After MDI-RT Yes Simvastatin (Zocor 20mg) 40 mg PO HS [facility] Stop: 01/08/21 00:00 Last Admin: 12/10/20 20:58 Dose: 40 mg Documented by: SUZANNE Tiotropium Elton (Spiriva 18 Mcg/Cap Inhaler) 1 ea IH DAILY JOSE Stop: 01/08/21 09:59 Last Admin: 12/09/20 06:42 Dose: 1 ea Documented by: RAFFY MDI Document 12/09/20 06:42 RAFFY (Rec: 12/09/20 06:45 RAFFY [id number]) MDI MDI Subsequent MDI Spacer Used No Rinsed Mouth After MDI Yes Tiotropium Elton (Spiriva 18 Mcg/Cap Inhaler) 1 ea IH 0700 [facility] Stop: 01/08/21 09:59 Last Admin: 12/11/20 08:15 Dose: 1 ea Documented by: EDWIGE MDI Document 12/11/20 08:15 TW (Rec: 12/11/20 08:15 TW [id number]) MDI MDI Subsequent MDI Rinsed Mouth After MDI Yes Chief Complaint Diagnosis COPD with exacerbation Allergies Allergy/AdvReac Type Severity Reaction Status Date / Time No Known Drug Allergies Allergy Verified 12/08/20 14:55 Vital Signs (Last 24 hours) Temp Pulse Resp BP Pulse Ox 12/11/20 08:15 56 L 18 92 L 12/11/20 08:00 98.3 F 80 19 118/70 92 L 12/11/20 04:00 97.4 F 80 16 136/79 93 L 12/11/20 00:00 97.6 F 84 19 108/62 96 12/10/20 20:00 70 20 96 12/10/20 19:46 98.1 F 67 18 147/65 98 12/10/20 16:00 97.2 F 103 H 18 133/83 95 12/10/20 13:14 93 H 20 94 L Home Medications Medication Instructions Recorded Confirmed Last Taken Type Albuterol Sulfate [Albuterol 8.5 gm IH Q6H 12/08/20 12/08/20 Unknown History Sulfate Hfa] Aspirin EC 81 mg [Ecotrin 81 81 mg PO DAILY 12/08/20 12/08/20 12/08/20 History mg] Atorvastatin Calcium 80 mg PO HS 12/08/20 12/08/20 12/07/20 History Budesonide/Formoterol Fumarate 10.2 gm IH DAILY 12/08/20 12/08/20 Unknown History [Symbicort 80-4.5 Mcg Inhaler] Carvedilol 12.5 mg [Coreg 12.5 12.5 mg PO BID 08/08/2512/08/20 12/08/20 History mg] Cholecalciferol (Vitamin D3) 25 mcg PO DAILY 12/08/20 12/08/20 12/08/20 History [Vitamin D3] Magnesium Oxide [Magnesium] 400 mg PO DAILY 12/08/20 12/08/20 12/08/20 History Omeprazole 20 mg PO BIDWM 12/08/20 12/08/20 12/08/20 History Prednisone 20 mg [Deltasone 20 20 mg PO DAILY 12/08/20 12/08/20 Unknown History mg] Promethazine HCl 25 mg 12.5 mg PO Q6H PRN 12/08/20 12/08/20 12/08/20 History [Phenergan 25 mg] lisinopriL [Lisinopril] 5 mg PO DAILY 12/08/20 12/08/20 Unknown History Furosemide 40 mg [Lasix 40 40 mg PO DAILY #30 tablet 12/11/20 Unknown Rx MG] Levofloxacin [Levaquin] 500 mg PO DAILY #5 tablet 12/11/20 Unknown Rx Potassium Chloride 10 Meq Tab* 0 meq PO DAILY #30 tab 12/11/20 Unknown Rx [Klor Con 10 MEQ] Current Medications Discontinued Medications Generic Name Dose Route Start Last Admin Trade Name Freq PRN Reason Stop Dose Admin Acetaminophen 650 mg 12/08/20 20:11 Tylenol 325 Mg PO 01/07/21 20:10 Q4H PRN PRN PAIN, FEVER, HEADACHE Albuterol Sulfate Confirm 12/08/20 22:14 Proventil 2.5 Mg/3 Ml Neb Administered 12/08/20 22:15 Dose 2.5 mg IH .STK-MED ONE Albuterol Sulfate 2.5 mg 12/08/20 19:00 12/10/20 07:24 Proventil 2.5 Mg/3 Ml Neb IH 01/07/21 18:59 Not Given TID JOSE Albuterol Sulfate 2.5 mg 12/09/20 13:00 12/11/20 08:14 Proventil 2.5 Mg/3 Ml Neb IH 01/07/21 18:59 2.5 mg TIDRT JOSE Administration Aspirin 81 mg 12/09/20 11:00 12/11/20 10:16 Ecotrin 81 Mg PO 01/08/21 10:59 81 mg DAILY JOSE Administration Carvedilol 12.5 mg 12/09/20 00:00 12/11/20 10:16 Coreg 12.5 Mg PO 01/08/21 00:00 12.5 mg BID JOSE Administration Methylprednisolone Sodium 0 mg 12/08/20 15:27 12/08/20 15:33 Succinate 125 mg/ Sterile IV 12/08/20 15:28 125 mg Water 2 ml STAT ONE Administration Methylprednisolone Sodium 0 mg 12/08/20 22:00 12/09/20 10:45 Succinate 80 mg/ Sterile Water IV 01/07/21 21:59 Not Given 2 ml Q8HT JOSE Methylprednisolone Sodium 0 mg 12/09/20 10:00 12/11/20 10:21 Succinate 80 mg/ Sterile Water IV 01/08/21 09:59 Not Given 2 ml Q8H JOSE Enoxaparin Sodium 40 mg 12/10/20 10:00 12/11/20 10:21 Enoxaparin Sodium SQ 01/09/21 09:59 Not Given DAILY JOSE Furosemide 20 mg 12/09/20 11:00 12/11/20 10:16 Lasix 20 Mg PO 01/08/21 10:59 20 mg DAILY JOSE Administration Ceftriaxone Sodium/Dextrose 1 g in 50 mls @ 100 mls/hr 12/09/20 10:00 12/11/20 10:21 Rocephin 1 Gm-D5w 50 Ml Bag IV 12/12/20 09:59 Not Given Q24H10 JOSE Azithromycin 500 mg in 250 mls @ 250 mls/hr 12/09/20 10:00 12/11/20 10:21 Zithromax 500 Mg/ 250 Ml Nacl Premix IV 01/08/21 09:59 Not Given Q24H10 JOSE Lisinopril 5 mg 12/09/20 11:00 12/11/20 10:16 Zestril 5 Mg PO 01/08/21 10:59 5 mg DAILY JOSE Administration Magnesium Oxide 400 mg 12/09/20 11:00 12/11/20 10:16 Mag-Ox 400 PO 01/08/21 10:59 400 mg DAILY JOSE Administration Methylprednisolone Sodium Succinate Confirm 12/08/20 15:32 Solu-Medrol Administered 12/08/20 15:33 Dose 125 mg .ROUTE .STK-MED ONE Methylprednisolone Sodium Succinate Confirm 12/08/20 23:16 Solu-Medrol Administered 12/08/20 23:17 Dose 125 mg .ROUTE .STK-MED ONE Pantoprazole Sodium 40 mg 12/09/20 00:00 12/11/20 10:16 Protonix 40mg Tablet PO 01/08/21 00:00 40 mg BID JOSE Administration Fluticasone/Salmeterol 2 puff 12/09/20 07:00 12/11/20 08:13 Advair Hfa 115 Common Canister* IH 01/08/21 06:59 2 puff BIDRT JOSE Administration Simvastatin 80 mg 12/09/20 00:00 Zocor 20mg PO 01/08/21 00:00 HS JOSE Simvastatin 40 mg 12/09/20 00:00 12/10/20 20:58 Zocor 20mg PO 01/08/21 00:00 40 mg HS JOSE Administration Sterile Water Confirm 12/08/20 15:32 Sterile H2o 10 Ml Administered 12/08/20 15:33 Dose 10 ml IJ .STK-MED ONE Sterile Water Confirm 12/08/20 23:16 Sterile H2o 10 Ml Administered 12/08/20 23:17 Dose 10 ml IJ .STK-MED ONE Tiotropium Elton 1 ea 12/09/20 10:00 12/09/20 06:42 Spiriva 18 Mcg/Cap Inhaler 01/08/21 09:59 1 ea DAILY JOSE Administration Tiotropium Elton 1 ea 12/10/20 07:00 12/11/20 08:15 Spiriva 18 Mcg/Cap Inhaler 01/08/21 09:59 1 ea 0700 JOSE Administration Intake & Output (Last 24 hours) 12/09/20 12/10/20 12/11/20 12/12/20 11:59 11:59 11:59 11:59 Intake Total 1260 2340 1540 Output Total 700 2400 250 Balance 560 -60 1290 Weight 86.5 kg 95.2 kg 89.5 kg Orders (Last 24 hours) Category Date Time Status Discharge Routine Discharge 12/11/20 Ordered Code(s): C91.10 - CHRONIC LYMPHOCYTIC LEUK OF B-CELL TYPE NOT ACHIEVE REMIS (3) Hypoxia Status: Acute Code(s): R09.02 - HYPOXEMIA - Discharge Discharge Date: 12/11/20 Disposition: Home, Self-Care Condition: Stable Prescriptions: New Potassium Chloride 10 Meq Tab* [Klor Con 10 MEQ] 0 meq PO DAILY #30 tab Furosemide 40 mg [Lasix 40 MG] 40 mg PO DAILY #30 tablet Levofloxacin [Levaquin] 500 mg PO DAILY #5 tablet Continue Prednisone 20 mg [Deltasone 20 mg] 20 mg PO DAILY lisinopriL [Lisinopril] 5 mg PO DAILY Albuterol Sulfate [Albuterol Sulfate Hfa] 8.5 gm IH Q6H Budesonide/Formoterol Fumarate [Symbicort 80-4.5 Mcg Inhaler] 10.2 gm IH DAILY Promethazine HCl 25 mg [Phenergan 25 mg] 12.5 mg PO Q6H PRN PRN Reason: Nausea Omeprazole 20 mg PO BIDWM Magnesium Oxide [Magnesium] 400 mg PO DAILY Cholecalciferol (Vitamin D3) [Vitamin D3] 25 mcg PO DAILY Carvedilol 12.5 mg [Coreg 12.5 mg] 12.5 mg PO BID Atorvastatin Calcium 80 mg PO HS Aspirin EC 81 mg [Ecotrin 81 mg] 81 mg PO DAILY Discontinued Furosemide 20 mg [Lasix 20 mg] 20 mg PO DAILY Instructions: Chronic Obstructive Pulmonary Disease (COPD) (DC) Follow up with: MELECIO BULLARD MD [Primary Care Provider] - 12/17/20 1:30 pm
== END 2020-12-11 11:05 | disposition home or self-care (01) ==
LOC: ED 14:46 → MED SURG 20:02
PROVIDERS: ADMIT Family Medicine; ATTEND Family Medicine
DX: J44.1 Chronic obstructive pulmonary disease with (acute) exacerbation (principal); I10 Essential (primary) hypertension; C91.10 Chronic lymphocytic leukemia of B-cell type not having achieved remission; R09.02 Hypoxemia; Z79.899 Other long term (current) drug therapy; E78.00 Pure hypercholesterolemia, unspecified; Z20.828 Contact with and (suspected) exposure to other viral communicable diseases
CPT/HCPCS: 36000; 36415; 71045; 80048; 80053; 83605; 83880; 84484; 85025; 85610; 93005; 93041; 93268; 94640; 94760; 94762; 96374; 99285; 99291; G0378; U0003; J0456; J0696; J1650; J2930; J7609; A9270-GY